=== PATIENT | female | born 1965 | race Caucasian/White ===

== ENCOUNTER 2021-07-26 12:55 | Inpatient (IN) | payer MEDICAID ==
[~2021-07-26] VITALS: Ht 160 cm; Wt 61.2 kg
--- NOTE | 2021-07-26 13:31 | NUR ---
[id number] FROM [facility], PT HAD ARGUMENT WITH STAFF, PT NON COMPLIANT WITH MEDS. PT AAOX3, VSS. RR EVEN & UNLABORED. DENIES CP, SOB, DIZZINESS, N/V, WEAKNESS AT THIS TIME. AWAITING EVAL BY AUBRIE. WILL CONT TO MONITOR.
[2021-07-26 15:22] LABS: BASOPHILS % (AUTO) 0.2 % (0.0-2.0); EOSINOPHILS % (AUTO) 0.1 % (0.0-6.0); HEMATOCRIT 32 % (33-45); HEMOGLOBIN 10.3 g/dL (11.5-14.8); LYMPHOCYTES # (AUTO) 1.2 K/uL (0.8-4.8); LYMPHOCYTES % (AUTO) 6.3 % (20.0-44.0); MEAN CORPUSCULAR HGB CONC 32 g/dl (31.0-36.0); MEAN CORPUSCULAR VOLUME 93 fL (82-100); MONOCYTES # (AUTO) 0.9 K/uL (0.1-1.30); MONOCYTES % (AUTO) 4.8 % (2.0-12.0); NEUTROPHILS # (AUTO) 16.2 K/uL (1.8-8.9); NEUTROPHILS % (AUTO) 88.6 % (43.0-81.0); PLATELET COUNT (AUTO) 655 K/uL (150-450); RED BLOOD CELL COUNT(AUTO) 3.45 MIL/uL (4.0-5.2); WHITE BLOOD COUNT (AUTO) 18.3 K/uL (4.3-11.0)
[2021-07-26 15:38] LABS: CALCIUM, SERUM 8.7 mg/dL (8.5-10.1); CARBON DIOXIDE 23 mmol/L (21-32); CHLORIDE 100 mmol/L (98-107); CREATININE 1.4 mg/dL (0.6-1.3); GLUCOSE 107 mg/dL (74-106); POTASSIUM 4.1 mmol/L (3.5-5.1); SODIUM SERUM 135 mmol/L (136-145); UREA NITROGEN, BLOOD 48 mg/dL (7-18)
[2021-07-26] MEDS ORDERED: VANCOMYCIN 1 GM in IV D5W 250 ML IV ONE (16:30)
[2021-07-26] MEDS ORDERED: CEFEPIME 1 GM in IV D5W 50 ML IV ONE (16:30)
[2021-07-26] MEDS ORDERED: IV NS 0.9% 1,000 ML BAG IV ONE (16:30)
--- NOTE | 2021-07-26 17:13 | NUR ---
CALLED NURSING SUP FOR BED
--- NOTE | 2021-07-26 17:23 | NUR ---
DR. SPARKS TO DR. WATERS
--- NOTE | 2021-07-26 17:47 | NUR ---
PT RESTING WELL. DENIES CP, SOB, DIZZINESS, N/V AT THIS TIME. MEDICATED PER ERMD ORDER, PT DENNY WELL. WILL CONT TO MONITOR.
--- NOTE | 2021-07-26 17:58 | NUR ---
NURSING SUP CALLED AND BED IS 106-1. WAIT UNTIL 1814 TO GIVE REPORT AND TRANSFER
[2021-07-26] MEDS ORDERED: IV NS 0.9% 1,000 ML IV ONE (18:00)
[2021-07-26] MEDS ORDERED: MAG HYDROX/AL HYDROX/SIMETH 30 ML UDC PO PRN (18:00)
[2021-07-26] MEDS ORDERED: ONDANSETRON HCL/PF 4 MG/2 ML VIAL IVP PRN (18:00)
[2021-07-26] MEDS ORDERED: Z GUARD REMEDY 2 OZ OINT TP PRN (18:00)
[2021-07-26] MEDS ORDERED: MAGNESIUM HYDROXIDE 30 ML UDC PO PRN (18:00)
--- NOTE | 2021-07-26 18:47 | NUR ---
REPORT GIVEN TO GEOVANNA RODRIGUEZ FOR AMINAH.
[2021-07-26 20:00] VITALS: BP 101/63
--- NOTE | 2021-07-26 20:30 | NUR ---
RN NOTE ADMITTED A 55 YEAR OLD FEMALE. REPORT GIVEN TO AM SHIFT. RECEIVED PATIENT AT 1900. PATIENT ALERT AND ORIENTED X3. ABLE TO MAKE NEEDS KNOWN. BREATHING EVEN AND UNLABORED. NO SOB NOTED. HOB ELEVATED 35 DEGREES. TOLERATING ROOM AIR. NO COUGH/CONGESTION NOTED. DENIES CHEST PAIN AT THIS TIME. NOTED WITH PERIPHERAL IV 20G ON RIGHT LATERAL NECK. NOTED PATIENT TO BE RUNNING VANCOMYCIN 1 GM AT 250 ML/HR. NO INFILTRATION NOTED. NOTED WITH BILATERAL FOOT CRADLE. KEPT CLEAN AND DRY. BED LOW, IN LOCKED POSITION. CALL LIGHT WITHIN REACH.
--- NOTE | 2021-07-26 21:01 | NUR ---
RN NOTE PATIENT ON TELEMETRY, SINUS RHYTHM AT THIS TIME AT 90 BPM. WILL CONTINUE TO MONITOR.
--- NOTE | 2021-07-26 21:09 | NUR ---
RN NOTES Deepa from lab called that patient is hard stick; with troponin due 2114; another breakfast host will come at 2129. Primary RN,Allan made aware
[2021-07-27] VITALS: BP 112/75
[2021-07-27 04:00] VITALS: BP 100/55
--- NOTE | 2021-07-27 07:30 | NUR ---
CUSTOM FRAMING SPECIALIST OPENING NOTE RECEIVED PATIENT A/X 2 PATENT WAS RESTING ON TELE MONITOR READING SR AT 88. PATIENT HAS A RT EXTERNAL JUGULAR VAIN ACCES 20g INTACT SL. NO SIGNS OR LABORED BREATHING PATIENT IS ON ROOM AIR WITH O2 SAT OF 97, HOB AT 45 DEGREES. PT IS ABLE TO VERBALIZE NEEDS ALL SAFETY MEASURE IN PLACE PER PROCOL, BED IN THE LOWEST POSITION, CALL LIGHT WITHIN REACH, 2 SIDE RAILS UP
[2021-07-27 08:00] VITALS: BP 96/51
[2021-07-27 09:31] LABS: BASOPHILS % (AUTO) 0.3 % (0.0-2.0); EOSINOPHILS % (AUTO) 0.3 % (0.0-6.0); HEMATOCRIT 28 % (33-45); HEMOGLOBIN 9.2 g/dL (11.5-14.8); LYMPHOCYTES % (AUTO) 7.5 % (20.0-44.0); MEAN CORPUSCULAR HGB CONC 33 g/dl (31.0-36.0); MEAN CORPUSCULAR VOLUME 92 fL (82-100); MONOCYTES # (AUTO) 0.6 K/uL (0.1-1.30); MONOCYTES % (AUTO) 4.4 % (2.0-12.0); NEUTROPHILS % (AUTO) 87.5 % (43.0-81.0); PLATELET COUNT (AUTO) 526 K/uL (150-450); RED BLOOD CELL COUNT(AUTO) 3.04 MIL/uL (4.0-5.2); WHITE BLOOD COUNT (AUTO) 13.7 K/uL (4.3-11.0)
[2021-07-27 09:47] LABS: CREATININE 1.4 mg/dL (0.6-1.3); PHOSPHORUS 4.8 mg/dL (2.5-4.9); POTASSIUM 3.6 mmol/L (3.5-5.1)
[2021-07-27] MEDS ORDERED: ACET325T53 MC (09:51)
[2021-07-27] MEDS ORDERED: LORA-259 PO (09:51)
[2021-07-27] MEDS ORDERED: NYST5ORA PO (09:51)
[2021-07-27] MEDS ORDERED: MIDO10TA PO (09:51)
[2021-07-27] MEDS ORDERED: HYDR-4303 PO (09:51)
[2021-07-27] MEDS ORDERED: SILV20CR13 TP (09:51)
[2021-07-27] MEDS: PIPERACILLIN /TAZOBACTAM 3.375 G in IV D5W 50 ML IV SCH ×3 (11:34→23:18)
[2021-07-27 12:00] VITALS: BP 93/47
[2021-07-27] MEDS ORDERED: IV NS 0.9% 250 ML IV PRN (12:00)
[2021-07-27] MEDS ORDERED: VANCOMYCIN 1 GM in IV D5W 250ml IV ONE (14:00)
[2021-07-27] MEDS: ACETAMINOPHEN 325 MG TABLET PO PRN ×2 (14:15→20:29)
--- NOTE | 2021-07-27 15:45 | NUR ---
EARRINGS FABRICATOR NOTE DR. WATERS NOTIFIED PATIENT HAD 1L OF URINE IN BLADDER AND BILATERAL HYDRONEPHROSIS PER SPECIAL INVESTIGATION UNIT INVESTIGATOR, 16 PERSIAN TONEY INSERTED PATIENT TOLERATED PROCEDURE WELL 1200ML OF URINE OUTPUT.
[2021-07-27 16:00] VITALS: BP 97/50
--- NOTE | 2021-07-27 16:08 | NUR ---
RN NOTES TONEY CATH INSERTED. WITH 1200 ML INITIALLY MILKY TO CLOUDY URINE OUTPUT. MALODOROUS.
[2021-07-27] MEDS ORDERED: LORAZEPAM INJ 2 MG/ML VIAL IV ONE (17:30)
--- NOTE | 2021-07-27 17:51 | NUR ---
CLAIMS SPECIALIST NOTE CULTURE OF LEFT THING ABSCESS OBTAINED, SENT TO LAB
--- NOTE | 2021-07-27 19:20 | NUR ---
SORTING SUPERVISOR CLOSING NOTE PATIENT A/O X 3 , IN BED NO COMPLAINTS OF SOB, NEEDS MET DURING SHIFT, ALL SCHEDULED MEDICATIONS GIVEN, PATIENT IS ABLE TO VERBALIZE NEEDS, SAFETY PROTOCOLS IN PLACE, BED IN LOWEST POSITION, SIDE RAILS UP, CALL LIGHT WITHIN REACH. WILL ENDORSE TO NIGHT NURSE FOR AMINAH
--- NOTE | 2021-07-27 19:30 | NUR ---
RN OPENING NOTES RECEIVED PATIENT IN BED AWAKE ALERT AND VERBALLY RESPONSIVE, RESPIRATORY EVEN AND UNLABORED, NO SOB NOTED AT THIS TIME. SATURATION AT 100% ON ROOM AIR .SR ON THE MONITOR. NOTED WITH RIGHT EXTERNAL JUGULAR VEIN IV LINE, G#20, PATENT AND FLUSHING WELL, NO S/S OF INFECTION OR INFILTRATION. PATIENT NOTED WITH TONEY CATHETER. SAFETY MEASURES IMPLEMENTED. PATIENT BED ALARM IS ON. HEAD OF BED ELEVATED. BED IS LOCKED, IN LOWEST POSITION AND SIDE RAILS UP. CALL LIGHT WITHIN REACH OF THE PATIENT. WILL CONTINUE TO MONITOR.
[2021-07-27 20:00] VITALS: BP 94/56
--- NOTE | 2021-07-27 21:17 | NUR ---
RN NOTES PT. IS RESTLESS AND ANXIOUS AND C/O PAIN 01/31, DR. BARTLETT NOTIFIED; NEW ORDER NORCO 5/325MG Q4H PO PRN FOR MODERATE PAIN, ATIVAN 1MG Q6H PRN FOR ANXIETY NOTED. RN ACKNOWLEDGE, REGISTERED DIETITIAN MADE AWARE.
--- NOTE | 2021-07-27 22:30 | NUR ---
RN NOTES RECEIVED CALL FROM DEVIN TORRES ([phone]) SISTER, WANTS TO HAVE HER LISTED ON PT'S RECORD PRIMARY ORACLE IAM CONSULTANT AND ALSO SISTER JAMES AHUMADA [phone]. RN ACKNOWLEDGED. WILL CALL ADMITTING TO GET THIS UPDATED.
[2021-07-27] MEDS: ZOLPIDEM TARTRATE 5 MG TABLET PO PRN (23:17)
[2021-07-28] VITALS (7 sets, daily range): BP systolic 90–130; BP diastolic 47–72
[2021-07-28] MEDS: LORAZEPAM 1 MG TABLET PO PRN ×2 (04:33→23:47)
[2021-07-28] MEDS: ACETAMINOPHEN 325 MG TABLET PO PRN (04:34)
[2021-07-28] MEDS: PIPERACILLIN /TAZOBACTAM 3.375 G in IV D5W 50 ML IV SCH ×4 (04:35→22:06)
--- NOTE | 2021-07-28 07:30 | NUR ---
REGIONAL ADMINISTRATIVE ASSISTANT OPENING NOTE RECEIVED PATIENT A/X 3, ON ROOM AIR 99% O2 SAT. NOT DISTRESS, NO SOB, RESPIRATION UNLABORED. DENIES PAIN. SR HR 74 ON MONITOR. RT EXTERNAL JUGULAR VEIN ACCES 20g FLUSHES WELL AND SITE CLEAR. PT IS ABLE TO VERBALIZE NEEDS, SEE NURSING FLOWSHEET FOR SKIN ISSUES, CARDIAC DIET, FOR WOUND CONSULT. BEDREST,PT UNABLE TO WALK. ALL SAFETY MEASURE IN PLACE PER PROTOCOL, BED IN THE LOWEST POSITION, CALL LIGHT WITHIN REACH, 2 SIDE RAILS UP
[2021-07-28 08:36] LABS: BASOPHILS # (AUTO) 0.1 K/uL (0.0-0.2); BASOPHILS % (AUTO) 0.6 % (0.0-2.0); EOSINOPHILS % (AUTO) 0.2 % (0.0-6.0); HEMATOCRIT 27 % (33-45); HEMOGLOBIN 8.7 g/dL (11.5-14.8); LYMPHOCYTES # (AUTO) 1.1 K/uL (0.8-4.8); LYMPHOCYTES % (AUTO) 10.1 % (20.0-44.0); MEAN CORPUSCULAR HGB CONC 32 g/dl (31.0-36.0); MEAN CORPUSCULAR VOLUME 96 fL (82-100); MONOCYTES # (AUTO) 0.7 K/uL (0.1-1.30); MONOCYTES % (AUTO) 6.4 % (2.0-12.0); NEUTROPHILS # (AUTO) 9.3 K/uL (1.8-8.9); NEUTROPHILS % (AUTO) 82.7 % (43.0-81.0); PLATELET COUNT (AUTO) 406 K/uL (150-450); RED BLOOD CELL COUNT(AUTO) 2.81 MIL/uL (4.0-5.2); WHITE BLOOD COUNT (AUTO) 11.2 K/uL (4.3-11.0)
[2021-07-28 08:39] LABS: ALBUMIN 1.8 g/dL (3.4-5.0); BILIRUBIN,TOTAL 0.4 mg/dL (0.2-1.0); CALCIUM, SERUM 7.9 mg/dL (8.5-10.1); MAGNESIUM 1.6 mg/dL (1.8-2.4); PHOSPHORUS 4.4 mg/dL (2.5-4.9); POTASSIUM 3.1 mmol/L (3.5-5.1); TOTAL PROTEIN, SERUM 6.4 g/dL (6.4-8.2)
[2021-07-28] MEDS ORDERED: POTASSIUM CHLORIDE 20 MEQ TAB.PRT.SR PO ONE (09:00)
[2021-07-28] MEDS ORDERED: ACETAMINOPHEN 325 MG TABLET MC SCH (09:00)
[2021-07-28] MEDS ORDERED: LORAZEPAM 1 MG TABLET PO PRN (09:00)
[2021-07-28] MEDS ORDERED: HYDROCODONE/APAP 5/325MG TABLET PO PRN (09:00)
[2021-07-28] MEDS ORDERED: Magnesium 1GM/D5W 100ML PREMIX 100 ML IV SCH (09:00)
--- NOTE | 2021-07-28 09:30 | NUR ---
RN OTES DUE MEDS GIVEN. PATIENT WANT TO GO AMA. Kirby ANDONIAN INFORMED.
[2021-07-28] MEDS: HYDROCODONE/APAP 5/325MG TABLET PO PRN ×3 (09:37→22:09)
--- NOTE | 2021-07-28 10:45 | NUR ---
RN NOTES SPOKE WITH SISTER DEVIN DELA CRUZ [phone] - EXPLAINED TO HER THAT PATIENT WANTS TO GO AMA AND GO HOME TO THEM. PER SISTER, NO ONE WILL BE AVAILABLE TO TAKE CARE OF HER EVEN THE PT'S DAUGHTER, . THEY WANT THE PATIENT TO BE DISCHARGED TO A REHAB SO TO ADDRESS ALL HER PROBLEMS AND WHEN SHE IS FEELING A BIT BETTER, THEN THEY WILL TAKE HER HOME.
[2021-07-28] MEDS: NYSTATIN (PYXIS) 500,000 UNIT/5 ML ORAL.SUSP PO SCH ×2 (12:09→17:18)
[2021-07-28] MEDS: MIDODRINE HCL (5MG) 5 MG TABLET PO SCH ×2 (12:10→17:18)
[2021-07-28] MEDS: ENSURE ENLIVE 237 ML LIQUID (VANILLA) PO SCH ×2 (12:10→12:11)
[2021-07-28] MEDS: VANCOMYCIN 0.75 GM in IV D5W 250 ML IV SCH (14:13)
--- NOTE | 2021-07-28 18:50 | NUR ---
RN CLOSING NOTES PATIENT A/O X 3 , IN BED NO COMPLAINTS OF SOB, NEEDS MET DURING SHIFT, ALL SCHEDULED MEDICATIONS GIVEN, PATIENT IS ABLE TO VERBALIZE NEEDS. TOLERATED ALL INTERVENTIONS. SAFETY MEASURES IN PLACE, BED IN LOWEST LOCKED POSITION, SIDE RAILS UP X 3, CALL LIGHT WITHIN REACH. WILL ENDORSE TO NIGHT NURSE.
--- NOTE | 2021-07-28 20:09 | NUR ---
RN OPENING NOTES: RECEIVED RESIDENT IN BED ALERT, ORIENTED X3, ON ROOM AIR. NO SOB, NO CHEST CONGESTION, BREATHING EVEN AND UNLABORED. NO C/O PAIN OR DISCOMFORT. NO RESPIRATORY DISTRESS. IV ACCESS ON RT EXTERNAL JUGULAR VEIN W/ 20G. ABLE TO VERBALIZE HER NEEDS. 2 SIDE RAILS UP. BED IN LOW POSITION AND LOCKED. PLACE CALL LIGHT WITH IN REACH. WILL CONTINUE TO MONITOR
--- NOTE | 2021-07-28 22:30 | NUR ---
RN NOTES: C/O MODERATE BACK PAIN 7/10 PAIN SCALE. NORCO GIVEN PRN ORDER AND PATIENT TOLERATED WELL.
--- NOTE | 2021-07-28 23:53 | NUR ---
RN NOTES: PATIENT BECAME VERY RESTLESS, KEPT SCREAMING, ATIVAN 1MG TAB PRN GIVEN FOR ANXIETY GIVEN AND TOLERATED WELL
[2021-07-29] VITALS: BP 124/68
[2021-07-29 04:00] VITALS: BP 105/64
[2021-07-29] MEDS: PIPERACILLIN /TAZOBACTAM 3.375 G in IV D5W 50 ML IV SCH ×4 (05:17→23:42)
[2021-07-29] MEDS: HYDROCODONE/APAP 5/325MG TABLET PO PRN ×2 (06:39→19:51)
--- NOTE | 2021-07-29 06:40 | NUR ---
RN CLOSING NOTES: RESIDENT IN BED ALERT, ORIENTED X3, VERBALLY RESPONSIVE. ON ROOM AIR. NO SOB, NO CHEST CONGESTION, BREATHING EVEN AND UNLABORED. C/O PAIN ON BACK AREA, NORCO GIVEN PRN ORDER. NO RESPIRATORY DISTRESS. IV ACCESS ON RT EXTERNAL JUGULAR VEIN W/ 20G. NEW IV ACCESS ON MIGUEL MIDLINE #18G PER 'S ORDER. IV ATB THERAPY GIVEN AND PATIENT TOLERATED WELL. ABLE TO VERBALIZE HER NEEDS. 2 SIDE RAILS UP. BED IN LOW POSITION AND LOCKED. PLACE CALL LIGHT WITH IN REACH. WILL ENDORSE TO MORNING SHIFT NURSE.
--- NOTE | 2021-07-29 07:44 | NUR ---
RN OPENING NOTES: RECEIVED RESIDENT IN BED ALERT, ORIENTED X3. PT TOLERATING RA, NO SOB, OR DISTRESS NOTED, NO C/O PAIN AT THIS TIME. IV ACCESS ON RT EXTERNAL JUGULAR VEIN W/ 20G. ABLE TO VERBALIZE HER NEEDS. ALL SAFETY MEASURES RENDERED. BED IN LOCKED IN LOWEST POS. WITH CALL LIGHT WITHIN REACH. WILL CONTINUE TO MONITOR.
[2021-07-29 08:00] VITALS: BP 92/61
[2021-07-29] MEDS: ENSURE ENLIVE 237 ML LIQUID (VANILLA) PO SCH ×2 (08:00→12:10)
[2021-07-29] MEDS: NYSTATIN (PYXIS) 500,000 UNIT/5 ML ORAL.SUSP PO SCH ×3 (08:24→16:11)
[2021-07-29] MEDS: MIDODRINE HCL (5MG) 5 MG TABLET PO SCH ×3 (08:28→16:11)
[2021-07-29] MEDS: SILVER SULFADIAZINE CREAM 25 GM TUBE TP SCH (08:29)
[2021-07-29 08:49] LABS: BASOPHILS # (AUTO) 0.1 K/uL (0.0-0.2); EOSINOPHILS % (AUTO) 0.2 % (0.0-6.0); HEMATOCRIT 25 % (33-45); HEMOGLOBIN 8.4 g/dL (11.5-14.8); LYMPHOCYTES # (AUTO) 1.3 K/uL (0.8-4.8); LYMPHOCYTES % (AUTO) 9.2 % (20.0-44.0); MEAN CORPUSCULAR HGB CONC 33 g/dl (31.0-36.0); MEAN CORPUSCULAR VOLUME 91 fL (82-100); MONOCYTES # (AUTO) 0.8 K/uL (0.1-1.30); MONOCYTES % (AUTO) 5.6 % (2.0-12.0); NEUTROPHILS # (AUTO) 11.9 K/uL (1.8-8.9); PLATELET COUNT (AUTO) 497 K/uL (150-450); RED BLOOD CELL COUNT(AUTO) 2.77 MIL/uL (4.0-5.2); WHITE BLOOD COUNT (AUTO) 14.2 K/uL (4.3-11.0)
[2021-07-29 09:47] LABS: CALCIUM, SERUM 7.6 mg/dL (8.5-10.1); CREATININE 0.7 mg/dL (0.6-1.3); POTASSIUM 2.9 mmol/L (3.5-5.1)
[2021-07-29] MEDS: LORAZEPAM 1 MG TABLET PO PRN ×2 (10:26→17:06)
--- NOTE | 2021-07-29 10:46 | NUR ---
WOUND CARE CONSULT: REVIEWED CHART, NURSING DOCUMENTATION AND PHOTOS WHICH INDICATE MULTIPLE SCARS, AREAS OF DISCOLORATION, SACRAL UNSTAGEABLE PRESSURE ULCER AND LOWER LEG WOUNDS, PRESENT ON ADMISSION. SURGICAL AND DPM CONSULTS CALLED TO DR MOREAU AND DR HERNANDEZ. RECOMMENDATIONS MADE FOR SKIN PROTECTION. DISCUSSED WITH NURSING STAFF. PT IS ON [place] LOW AIRLOSS BED. MD IN AGREEMENT WITH PLAN OF CARE.
[2021-07-29] MEDS ORDERED: POTASSIUM CHLORIDE 10 MEQ/50 ML PREMIXED IVPB FOR PERIPHERAL LINE IV SCH (11:00)
[2021-07-29] MEDS: POTASSIUM CHLORIDE 10 MEQ/50 ML PREMIXED IVPB FOR PERIPHERAL LINE IV SCH ×7 (11:45→18:06)
[2021-07-29 12:00] VITALS: BP 111/68
[2021-07-29] MEDS: VANCOMYCIN 0.75 GM in IV D5W 250 ML IV SCH (13:54)
[2021-07-29 16:00] VITALS: BP 126/74
--- NOTE | 2021-07-29 16:06 | NUR ---
"SS consult for from assisted living with wounds. Pt. Is a 55-year-old female. Pt. demonstrates adequate insight to the reason for hospitalization. Pt. was oriented x3, alert, and cooperative. During interview, pt. was capable of following directions, and made appropriate eye-contact. Pt.s speech was at a normal rate. During interview, pt. was upset and crying. Pt. reported that she had a fall at work [[employer]] and is not able to go back to work due to fall. SW explored pt.s Hx of mental health and substance abuse. Pt. reported no Hx of mental health, substance abuse, suicidal or homicidal. Pt. denies auditory hallucinations, visual hallucinations, paranoia, or delusions. SW explored pt.s living situation. Per pt., she lives with her boyfriend Talib [[address] [place], [address]]. Per pt., she reports having adequate support from her boyfriend and sister Adwoa [[phone]]. Pt. reported that her boyfriend does not know she is in the hospital. DAO spoke with pt.s nurse Arnulfo and he mentioned that she may go to a rehab facility once discharged. Plan: SW provided available fdc resources and pt. accepted. Pt. signed homeless waiver and its placed in pt.s chart. Per pt., she wanted homeless resources for future references. Once discharge, per pt., [facility] [[address] [place] [address]]. Resources Provided: Winter Shelters: SPA 2 | [facility]: [facility] Address: Confidential (call for location ) Population Served: Coed # of Beds: 57 SPA 4 | [facility] Provider: [facility] Address: [address] [place] [address], [address] # of Beds: 49 Population Served: Coed SPA 6 | [facility] Provider: [facility] Address: [address] [place] [address], [address] # of Beds: 49 Population Served: [facility] Provider: Be MARQUEZ Address: [address] [facility] [address] # of Beds: 20 Population Served: Women RAMSEY Facility Provider: [facility]: [address] [facility] [address] # of Beds: 30 Population Served: Women SPA 8 | [facility] Provider: [facility] [place] Address: [address] [facility] [address] # of Beds: 65 Population Served: Coed Year-round shelters: [facility] [place] [address] [place] [address] ; [facility] [place] [address] [place] [address]; [facility] [id number] [facility] [address] Winter Shelters: [facility] Provider: [facility] [place] Address: [address] [facility] [address] # of Beds: 47 Population Served: Coed SPA 6 | [facility] Camilla Gregory Telephone Provider: [facility] Address: [address], [address] # of Beds: 66 Population Served: Coed [place] Telephone Provider: [facility] Address: [address] [facility], [address] # of Beds: 56 Population Served: Coed Rajesh Wright Provider: /[facility]. [facility] Address: [address] [facility], [address] # of Beds: 49 Population Served: Coed SPA 8 | [facility] Provider: [facility] Address: [address] [facility], [address] # of Beds: 37 Population Served: Coed Hygiene: [facility]: [address] [place] ; [facility] [address] [facility] ; [facility] [address] [place] . Food Resources: [facility] at [facility]- [address] [place]; [facility] Each Need with [facility] ([facility]) [address] [place]; [facility] [address] [facility]; [facility] [address] [facility] Mental Health resources provided: [facility] [address] [place], [place] [address] ; [facility] [address] [facility] [address], [place], [place] [id number] ; [facility] [address] [facility] [place], [place] [id number] ; [facility] [address] [place], [place] [address] Healthcare Clinics: [facility] [address] [facility], [address] [place]. [place] ; [facility] [address] [facility] [address] [place] [address]; [facility] [place] [address] [facility]. [place] [phone] Counseling--[facility] [address] [facility], [place] [address] (Specializes in in-depth psychotherapy for emotional distress: anxiety, depression, interpersonal conflicts, life transitions, childhood abuse) [facility] [address] [place] [address] (Assist with solving problem marital difficulties, separation & divorce, aging parents, & grief, chronic & terminal illness) [facility] [address] [place] [address] (Deal with loss & grief, anxiety, marital difficulties) [facility] [address] [facility], [address] [place] [address] (Provide in-home mental services to people who are incapable of leaving their homes) [facility] [address] [place] [place] [address] [facility] [address] [place] [address] "
--- NOTE | 2021-07-29 18:48 | NUR ---
RN CLOSING NOTES; PT IN BED IN SUPINE POS. REPOSITIONED EVERY 2 HOURS. ALL MEDICATIONS GIVEN AND TOLERATED WELL. PT GIVEN K 80 MEQ. 8 BAGS GIVEN PER MD ORDER. WOUND CARE DONE AND TOLERATED WELL. PT KEPT CLEAN, DRY AND COMFORTABLE. ALL SAFETY MEASURES RENDERED, BED IN LOWEST POS. LOCKED WITH CALL LIGHT WITHIN REACH. WILL ENDORSE TO WOOD CHOPPER RN. PT IN STABLE CONDITION. NEED FOLLOW UP ON CONSENT FOR SERIAL DEBRIDEMENT OF SACRUM.
[2021-07-29] MEDS: THERAHONEY GEL 1.5 OZ TUBE TP SCH (19:00)
[2021-07-29] MEDS: NEOMY SULF/BACITRAC ZN/POLY 15 GM TUBE TP SCH (19:00)
[2021-07-29] MEDS: ZOLPIDEM TARTRATE 5 MG TABLET PO PRN (19:51)
--- NOTE | 2021-07-29 19:55 | NUR ---
RN NOTES RECEIVED CARE OF PATIENT WHILE PATIENT IS IN BED, A/O X4, ABLE TO VERBALIZE NEEDS. PATIENT COMPLAINED OF GENERALIZED PAIN AND DIFFICULTY SLEEPING, ADMINISTERED NORCO & AMBIEN PRN PER PATIENT'S WISHES, BOTH MEDICATIONS WERE EFFECTIVE UPON REASSESSMENT. PATIENT WAS REPOSITIONED. PATIENT IS ON ROOM AIR, O2 SAT 98%, NO SIGNS OF SOB. MIGUEL MIDLINE & R EXTERNAL JUGULAR VEIN IV ACCESS REMAIN PATENT WITH NO COMPLICATIONS NOTED. ALL SAFETY MEASURES RENDERED, BED IN LOWEST POSITION, LOCKED WITH CALL LIGHT WITHIN REACH. WILL CONTINUE TO MONITOR FOR ANY CHANGES IN PATIENT'S CONDITION.
[2021-07-29 20:00] VITALS: BP 110/67
[2021-07-30] VITALS: BP 99/59
[2021-07-30] MEDS: LORAZEPAM 1 MG TABLET PO PRN (01:00)
[2021-07-30] MEDS: HYDROCODONE/APAP 5/325MG TABLET PO PRN ×3 (01:00→12:58)
[2021-07-30 04:00] VITALS: BP 109/55
[2021-07-30] MEDS: PIPERACILLIN /TAZOBACTAM 3.375 G in IV D5W 50 ML IV SCH ×3 (05:19→16:23)
[2021-07-30 06:22] LABS: *SPE A/G RATIO 0.5 (0.7-1.7); *SPE ALPHA-1-GLOBULIN 0.5 g/dL (0.0-0.4); *SPE ALPHA-2-GLOBULIN 0.9 g/dL (0.4-1.0); *SPE M-SPIKE 0.2 g/dL (Not Observed)
--- NOTE | 2021-07-30 07:02 | NUR ---
RN CLOSING NOTES WILL ENDORSE PATIENT TO DAY SHIFT NURSE IN STABLE CONDITIONS, A/O X4, ABLE TO VERBALIZE NEEDS. PATIENT WAS REPOSITIONED THROUGHOUT THE SHIFT FOR RELIEF OF BACK AND GENERALIZED PAIN. PATIENT IS ON ROOM AIR, O2 SAT 100%, NO SIGNS OF SOB. MIGUEL MIDLINE & R EXTERNAL JUGULAR VEIN IV ACCESS REMAIN PATENT WITH NO COMPLICATIONS NOTED. ADMINISTERED ALL SCHEDULED MEDICATIONS ACCORDING TO ORDERS. ALL SAFETY MEASURES RENDERED, BED IN LOWEST POSITION, LOCKED WITH CALL LIGHT WITHIN REACH. WILL ENDORSE TO DAYSHIFT NURSE FOR AMINAH.
--- NOTE | 2021-07-30 07:30 | NUR ---
RN OPENING NOTES RECEIVED PT IN BED ALERT, ORIENTED X3. PT TOLERATING RA, NO SOB, OR DISTRESS NOTED, NO C/O PAIN AT THIS TIME. IV ACCESS ON RT EXTERNAL JUGULAR VEIN W/ 20G AND MIGUEL MIDLINE 18G INTACT AND PATENT. ABLE TO VERBALIZE HER NEEDS. ALL SAFETY MEASURES RENDERED. BED IN LOCKED LOWEST POS. SIDE RAILS UP X3 WITH CALL LIGHT WITHIN REACH. WILL CONTINUE TO MONITOR.
[2021-07-30 08:00] VITALS: BP 115/65
[2021-07-30] MEDS: ENSURE ENLIVE 237 ML LIQUID (VANILLA) PO SCH ×2 (08:04→13:20)
[2021-07-30] MEDS: NYSTATIN (PYXIS) 500,000 UNIT/5 ML ORAL.SUSP PO SCH ×3 (08:13→16:23)
[2021-07-30] MEDS: MIDODRINE HCL (5MG) 5 MG TABLET PO SCH ×3 (08:14→16:24)
[2021-07-30] MEDS: NEOMY SULF/BACITRAC ZN/POLY 15 GM TUBE TP SCH (08:23)
[2021-07-30] MEDS: SILVER SULFADIAZINE CREAM 25 GM TUBE TP SCH (08:23)
[2021-07-30] MEDS: THERAHONEY GEL 1.5 OZ TUBE TP SCH (08:24)
[2021-07-30 10:05] LABS: CALCIUM, SERUM 7.5 mg/dL (8.5-10.1); CREATININE 0.6 mg/dL (0.6-1.3); POTASSIUM 3.2 mmol/L (3.5-5.1)
[2021-07-30 12:00] VITALS: BP 111/67
[2021-07-30] MEDS ORDERED: VANCOMYCIN 0.75 GM in IV D5W 250 ML IV SCH (14:00)
--- NOTE | 2021-07-30 15:21 | NUR ---
PER SHELTON CM STILL WAITING FOR INSURANCE AUTHORIZtion.
[2021-07-30 16:00] VITALS: BP 129/64
[2021-07-30 16:24] VITALS: BP 129/64
--- NOTE | 2021-07-30 16:24 | NUR ---
patient refused discharge photo to be taken.
--- NOTE | 2021-07-30 19:02 | NUR ---
MOSAIC TILER NOTES PT. TO BE DISCHARGED TO [facility]. GAVE REPORT TO NURSING FOOD SERVICE TECHNICIAN SUYAPA. ALL PAPERWORK SIGNED. DISCHARGE INSTRUCTIONS EXPLAINED TO PT. PT STATES UNDERSTANDING. ALL BELONGINGS LIST FILLED OUT AND SENT WITH PT. VITAL SINS TAKEN AND WNL. REPORT GIVEN TO AMBULANCE CREW PROPERLY. PT LEFT UNIT IN [facility] IN STABLE CONDITION.
== END 2021-07-30 18:52 | DRG 203 ==
LOC: ER 13:00 → MEDSG1 18:10 → TELE1 19:22 → MEDSG1 07-30 18:24
PROVIDERS: ADMIT Family Medicine
DX: R07.89 Other chest pain (principal); N17.0 Acute kidney failure with tubular necrosis; L89.150 Pressure ulcer of sacral region, unstageable; I12.0 Hypertensive chronic kidney disease with stage 5 chronic kidney disease or end stage renal disease; M46.20 Osteomyelitis of vertebra, site unspecified; D63.8 Anemia in other chronic diseases classified elsewhere; N13.30 Unspecified hydronephrosis; N18.9 Chronic kidney disease, unspecified; E87.6 Hypokalemia; D75.839 Thrombocytosis, unspecified; R05.9 Cough, unspecified; Z20.822 Contact with and (suspected) exposure to COVID-19; D72.829 Elevated white blood cell count, unspecified; R73.9 Hyperglycemia, unspecified; M46.40 Discitis, unspecified, site unspecified; G89.29 Other chronic pain; Z91.14 Patient's other noncompliance with medication regimen; S31.000A Unspecified open wound of lower back and pelvis without penetration into retroperitoneum, initial encounter; X58.XXXA Exposure to other specified factors, initial encounter; Y92.9 Unspecified place or not applicable; R33.9 Retention of urine, unspecified
CPT/HCPCS: 36415; 71045-TC; 76770-TC; 80048-TC; 80053-TC; 80202-TC; 82550-TC; 83605-TC; 83735-TC; 83970; 84100-TC; 84155; 84165; 84484-TC; 85025-TC; 85730-TC; 87040-TC; 87070-TC; 87081-TC; 93307-TC; 97110-TC; 97112-TC; 97530-TC; A4217; A6253; A6403; G0378; J0692; J2060; J2543; J3370; J3475; J3480; J7030; J7050; J7060; U0003